=== PATIENT | female | born 1960 | race African-American/Black ===

== ENCOUNTER 2016-05-24 01:56 | Inpatient (IN) | payer OTHER ==
[~2016-05-24] VITALS: Ht 172.7 cm; Wt 103.9 kg
[~2016-05-24 01:56] MED LIST: ATENOLOL100 M1 PO; MULTI-DAY VITA1 EACH PO; PRINIVIL20 M1 PO; VALIUM5 M2 PO
--- NOTE | 2016-05-24 10:12 | RADIOLOGY REPORT ---
EXAMINATION: XR LUMBAR SPINE CLINICAL INFORMATION: L4-L5 transforaminal lumbar interbody fusion. COMPARISON: None. TECHNIQUE: Single view lumbosacral spine. FINDINGS: The vertebral bodies and posterior elements are normal. The disc spaces are preserved and the vertebral alignment is normal. There is metallic marker which is at the level of what appears to be the L4 posterior spinous process. I do not have complete views of the spine with visualization of ribs which would allow me to count the vertebrae. IMPRESSION: A needle is present overlying what appears to be the posterior spinous process of L4.
--- NOTE | 2016-05-24 12:25 | Operative Report ---
Operative/Inv Procedure Report Surgery Date: 05/24/16 Name of Procedure: L4 5 transforaminal lumbar interbody fusion, L4 5 posterior lateral fusion, bilateral facetectomies for spondylolisthesis reduction, L4 5 posterior nonsegmental fixation using Synthes Expedia pedicle screws, L4 5 interbody placement 4web cage, use of autograft, use of allograft, bone marrow aspirate, O arm navigation Pre-Operative Diagnosis: L4 5 spondylolisthesis Post-Operative Diagnosis: Same Estimated Blood Loss: 250 Surgeon/Reinforced Steel Placing Supervisor: Miguel hoff MD and FIDENCIO BENNETT MD Anesthesia: general endotracheal tube Operative/Procedure Note Note: After successful administration of general endotracheal anesthesia all lines tubes and monitors were placed by anesthesia team the patient was positioned prone on the Alfred table with all pressure points padded. We prepped the patient placed a spinal needle to confirm level using x-ray. After levels confirmed reprepped and draped patient usual standard fashion a #10 was used to incise the skin was dissected down with Bovie cautery to the thoracolumbar fascia was divided with the Bovie electrocautery. The fascia was divided and a subperiosteal dissection was carried out exposing the spinous process lamina of L4 and L5, the transverse processes of L4 and L5 were identified and denuded of soft tissue high-speed drill was used to drill decorticated transverse processes. We preserved 34 and 51 joint spaces. After levels confirmed with x- ray we denuded the 45 joint space. We used the [employer] bone scalpel to make cuts in the pars articularis and the lamina bilaterally, removing the bilateral descending facets of L4, we also removed the lamina of L4 and entirety. We then made cuts with the bone scalpel in the superior facet of L5 on the left-hand side providing wide axis to the far lateral disc. We ensured that both exiting traversing L4 and L5 nerve roots were thoroughly decompressed by removing the ligamentum flavum with Kerrison punch. Recess all her bony and ligamentous decompression with#11 blade sequentially removed the disc with a sequential enrico pituitaries and curettes. We trialed a 12 mm spacer this at the appropriate size, the disc space was prepacked with morselized autograft as well as the intervertebral biomechanical device a 12 x 26 x 0 lordotic 4web cage was placed. Monitoring was stable. We then placed the spinous process reference array on the spinous process of L5 brought the O arm in for a spin. On the [employer] workstation with plantar screw entry points trajectories and lengths, we used the navigated instruments to plantar pilot can router holes at the junction of pars reticularis transverse process and facet complex. We placed the pedicle screw the standard fashion using a 6 5 x 45 on the left a 6 5 x 45 on the right at L4 to 6 5 x 40 on the right at L5. All screws stimulated above threshold, the O arm was brought in and confirmed excellent hardware position. We then placed morselized autograft over the decorticated transverse processes and a piece of master graft bilaterally, the morcellized autograft was soaked with bone marrow aspirate taken from the pedicles. Placed bilateral 40 mm rods were secured in place with the set screws and tightened with a torque limiting device. The wound was copiously irrigated bacitracin irrigation. Of note after facetectomy was then interbody cage the patient had a good reduction of spondylolisthesis. The wound was dusted with vancomycin powder through separate stab incision #7 SHAKA drain was inserted. Meticulous hemostasis was obtained the spinous process clamp was removed and the wound was closed in layers using 0 Vicryl for muscle 0 device the fascia 2-0 Vicryl for the deep dermis and the skin was closed with janee. Of note 20 mL of lipid Marcaine was infiltrated the muscle enclosing. A dry sterile dressing was applied. At the end the case all needles sponges and attention counts were correct. Patient was taken to the recovery room in stable condition.
--- NOTE | 2016-05-24 12:50 | Operative Report ---
Operative/Inv Procedure Report Surgery Date: 05/24/16 Name of Procedure: 1. Bilateral L4 pars osteotomies 2. Total bilateral L4 5 facetectomies for reduction of spondylolisthesis L4 5 3. Left L4 5 far lateral discectomy 4. L4 5 transforaminal lumbar interbody fusion with for rehabilitation titanium cage, autograft 5. Nonsegmental L4 5 posterior lateral arthrodesis with Expedia pedicle screws and rods, autograft, master graft 6. O arm navigation Pre-Operative Diagnosis: L4 5 dynamic spondylolisthesis with stenosis Post-Operative Diagnosis: Same Estimated Blood Loss: 600cc Surgeon/Center Sales And Service Associate: SABRINA VARELA,Miguel Sharma M.D. Anesthesia: general endotracheal tube Monitors: Neurophysiologic monitoring IV Fluids: 2.2 L crystalloid Implants: For with titanium interbody cage, Synthes Expedia pedicle screws and rods Urine Output: 185 mL Drains: Medium SHAKA Specimens: L4 5 disc material Complications: None Condition: Stable Operative Indication: Patient is a 56-year-old woman who presents with lumbar claudication and low back pain. She's had a prolonged course of conservative care with ongoing symptoms. Her imaging studies identify a degenerative L4 5 dynamic spondylolisthesis associated with significant central and foraminal stenosis. In light of her failure to respond to nonoperative treatment, she now presents for surgical intervention in the way of a decompression and instrumented fusion. The risks, benefits, and alternatives of the proposed procedure as well as nonsurgical alternatives were explained to the patient in detail. She understood and elected to proceed. Written operative consent was obtained. Operative/Procedure Note Note: Patient was taken to the operating room. After appropriate patient identification and after surgical timeout, neurophysiologic monitoring leads were placed and baseline recordings were obtained. Patient then underwent the smooth induction of general endotracheal anesthesia without incident. Following intubation, monitoring was stable. A Vidal catheter was sterilely inserted. 3 g of IV kjefzol were given in preoperative prophylaxis. DVT prophylaxis was utilized throughout the case. With all tubes and lines secured, the patient was carefully turned to prone position on the Alfred frame taking care to ensure that all pressure points were well-padded. The lumbar region low back was widely prepped and draped usual sterile fashion using povidone iodine solution. A vertical midline skin incision was marked and infiltrated with local anesthetic. As well as a spinal needle was placed superficially and a localizing lateral x-rays obtained to confirm this to be the level of L4 5. With the correct level verified, we then proceeded to make a skin incision with a 10 blade knife. Dissection was carried down through subcutaneous tissue with the Bovie to the lumbodorsal fascia. Fascia was incised in midline and a subperiosteal dissection lumbar paravertebral muscles was performed bilaterally the Bovie exposing underlying spinous processes, lamina, and facet joints bilaterally. The facet joints L4 5 were noted to be markedly hypertrophic. The transverse processes of L4 and L5 were exposed bilaterally decorticated with a high-speed drill. A Mason 4 elevator was placed under the inferomedial aspect of the presumed L4 lamina and intraoperative x-rays obtained to confirm this to be the correct level. Facet joint capsules of L4 5 were stripped bilaterally the Bovie. Spinous process of L4 and L5 were subtotally resected with a Leksell rongeur to preserve the L3 4 and L5-S1 interspinous ligaments and the bone saved on the back table. Using the bone scalpel and Kerrison rongeurs, bilateral pars osteotomies and L4 were completed followed by a total facetectomies of L4 5 on both sides skeletonizing the pedicles of L4 to L5 bilaterally. All bone was saved and passed off to the back table. Hypertrophic underlying ligamentum flavum was stripped with the Kerrisons exposing underlying thecal sac. This was nicely decompressed and the exiting L4 and traversing L5 roots were widely decompressed bilaterally. We then focused our attention to the left side of the L4 5 disc. The dural sac was gently mobilized towards the midline exposing the far lateral disc annulus. This was coagulated with a bipolar and incised in a rectangular fashion with an 11 blade knife. A discectomy was then performed with the disc space scrapers and rasps until all the cartilaginous endplate was removed. The disc space was gently distracted to 12 mm with the dilator. A 12 mm Synthes 4 Stout titanium cage was selected. This was filled with morcellated autograft. Autograft was packed into the anterior L4 5 disc space. The cage was then gently tamped into the disc space under direct observation and countersunk by 23 mm while protecting the neural elements. Once the cage was in position, we then proceeded with the posterior lateral arthrodesis. The O arm reference arc was attached to the L5 spinous process and the O arm was brought into play. AP and lateral reference x-rays were obtained followed by the spin of the O arm. Reconstructions were then obtained and confirmed. Under O arm navigation, pedicle screws were then placed bilaterally at L4 and L5. Entry points were selected at the junction of the pars interarticularis, transverse process, and inferolateral lateral aspect of the rostral facet. Network Firewall Engineer holes were made with the drill. The pedicles were traversed with a gearshift. The holes were sounded, tapped, resounded, and screws placed under a navigation. Prior to placement of the screws, morcellated autograft was packed from the L4 to L5 transverse process along with a 6 mL of Master graft on top. 6.5 x 45 mm Synthes ex medium pedicle screws were placed at L4 and L5 on the left, 6.5 x 45 screw right L4 and a 6.5 x 40 screw at the right L5 without complication. All screws were stimulated with thresholds greater than 30 mA. The cage was further impacted approximately a 2 mm based on the initial of reconstructions The O arm was brought back into play and a second spin was obtained. Reconstructions were obtained and confirmed and all of the screw positions were confirmed and noted to be excellent and the interbody cage position was excellent. 40 mm titanium rods were top loaded into the screws and locking caps placed. The screws were finally tightened with an antitorque device. The wound was copiously irrigated with bacitracin sterile saline irrigation. Meticulous hemostasis is achieved prior to closure using combination of bipolar and thrombin-soaked Gelfoam which was used to cover the interlaminar defect bilaterally. A medium SHAKA drain was placed into the wound and secured to the skin with a 2-0 nylon suture. 1 g of IV vancomycin powder was used to coat all of the cut muscle and soft tissue surfaces prior to closure. Neurophysiologic monitoring was stable we began closure. Deep muscle was reapproximated with interrupted 0 Vicryl suture. The lumbar dorsal fascia was reapproximated with interrupted 0 Vicryl suture. 20 mL of long-acting local anesthetic was infiltrated into the muscle bilaterally and then the superficial wound was closed in layers with interrupted 2-0 Vicryl suture. The skin was closed with janee. Wounds clean and dried. Bacitracin and a sterile occlusive dressing was placed. Patient was returned to the supine position, awakened extubated taken to PACU in stable condition. She was noted to be moving all 4 extremities at the completion of the case. All sponge, needle, and instrument counts were correct at the completion of procedure 3. Neurophysiologic monitoring was stable throughout the case.
--- NOTE | 2016-05-24 14:14 | Admission Core Measures ---
Admission Lab Results I reviewed the following labs: Laboratory Tests 05/24 0650 Urines Urine Test NEGATIVE Admission Meds I reviewed the following Meds: Current Medications Sig/Naldo Start time Last Medication Dose Stop Time Status Admin Acetaminophen 650 MG Q4P PRN 05/24 1415 AC (Tylenol) Atenolol 100 MG DAILY 05/25 1000 AC (Tenormin) Cefazolin Sodium 2 GM Q8H 05/24 1600 AC (Kefzol) N/A 1 UNIT (No Carrier) Cefazolin Sodium 2,000 MG ONCE 05/24 0000 NR (Kefzol-Ancef Inj) 05/24 2359 Docusate Sodium 100 MG TID 05/24 1600 AC (Colace) Heparin Sodium 5,000 UNIT Q8 05/25 0600 AC (Porcine) Hydromorphone HCl 50 MG Q24H PRN 05/24 1330 AC (Dilaudid) Sodium Chloride 45 ML (Normal Saline 50ML Bag) Ketorolac 30 MG Q6P PRN 05/24 1415 AC Tromethamine 05/29 1414 (Toradol) Lisinopril 20 MG DAILY 05/25 1000 AC (Prinivil) Ondansetron HCl 4 MG Q6P PRN 05/24 1415 AC (Zofran) Senna 374 MG AT BEDTIME NEED.. 05/24 1415 AC (Senokot) Sodium Chloride 1,000 ML Q12H 05/24 1400 AC (Normal Saline) Trimethobenzamide HCl 200 MG Q6P PRN 05/24 1415 AC (Tigan) Zolpidem Tartrate 2.5 MG AT BEDTIME 05/24 2200 AC (Ambien) Acute Coronary Syndrome Inclusion Criteria ACS Diagnosis No Inpatient Core Measures LDL Reminder: If No, please order W/I first 24hr of stay Congestive Heart Failure Inclusion Criteria CHF Diagnosis No Cerebrovascular accident Inclusion Criteria CVA/TIA Diagnosis No Inpatient Core Measures Bedside Swallow Eval Reminder: If BSE failed, place ST order Antithrombotic Reminder: Order Antithrombotic Medication by end of day 2 Antithrombotic Reminder: Document Reason Antithrombotic Not ordered by end of day 2 AFIB/Flutter Reminder: If Present, add to problem list AFIB/Flutter Reminder: Order Anticoag Medication for pts with AFIB/Flutter Atherosclerosis Reminder: If Present, add to problem list LDL Reminder: If No, please order W/I first 24hr of stay PT Order Reminder: If No, please order Venous thromboembolism Inpatient Core Measures VTE Risk Factors: Age > 40, Obesity, Surgery VTE Prophylaxis Ordered Inpt Mechanical (ALPS/TEDS) [facility] prophylaxis d/t No contraindications No VTE Pharm Prophylaxis d/t Surgical contraindication Inclusion Criteria - Per Current guidelines, there needs to be overlap - treatment for the first 5 days of Warfarin therapy. - Parenteral Anticoagulation (IV or SC) needs to be - given along with Warfarin therapy. VTE Diagnosis No VTE Type NONE VTE Confirmed by (Test) NONE Problem List As ranked by this Provider includes Assessment & Plan 1. Spinal stenosis at L4-L5 level HOME MEDS Home Med List Atenolol 100 MG TABLET 1 TAB PO DAILY BP (Reported) Diazepam (Valium) 5 MG TABLET 1 TAB PO PRN SPASMS (Reported) Lisinopril (Prinivil) 20 MG TABLET 1 TAB PO DAILY BP (Reported) Multivitamin (Multi-Day Vitamins) 1 EACH TABLET 1 TAB PO DAILY SUPPLEMENT ( Reported)
--- NOTE | 2016-05-24 14:20 | PN- Neurosurgical ---
Subjective Subjective: The patient was seen this afternoon postoperatively. She complains of mild incisional soreness but is otherwise relatively comfortable with current pain regiment. She denied any numbness, weakness, or tingling in her extremities and had no other complaints at the current time. Additionally, she denies any chest pain, palpitations, or difficulty breathing. Objective Vital Signs and I&Os Vital signs: Blood pressure 150/85, pulse 65, temperature 97.8, O2 saturations 96% on room air I's and O's: 2200 ML's in of lactated Ringer's/200 ML's out of urine via Vidal catheter/EBL 400/SHAKA 40 Physical Exam: Gen.: Alert and in no obvious distress Skin: Warm and dry Cardiac: S1-S2 regular Pulmonary: Bilateral breath sounds are equal but decreased at bases Back: Surgical dressing was clean, dry, and intact. There is a SHAKA 1 holding suction with serosanguineous drainage in the bulb Extremities: Patient was able to move all 4 extremities with equal strength. Gross motor and sensory were intact. Bilateral lower extremities are warm without calf tenderness or significant edema. Assessment/Plan Assessment/Plan Assessment: 56-year-old female status post L4 -5 TLIF. Postoperative the patient remains neurologically intact and her pain is under relatively adequate control. Plan: Patient may be out of bed as tolerated with surgical brace. Physical therapy consultation Continue current pain regiment with Dilaudid PULVERIZER TENDER and when necessary Toradol GI and DVT prophylaxis with Alps only. If patient is stable tomorrow we will start subcutaneous heparin Follow-up morning laboratory studies Strict I's and O's Advance diet as tolerated Keep SHAKA is self suction and Vidal catheter to gravity Resume patient's home medications IV antibiotics will SHAKA is in Core Measures/Miscellaneous Vidal Catheter Date In: 05/24/16 Still Needed? Yes Venous Thromboembolism VTE Risk Factors: Age > 40, Obesity, Surgery VTE Contraindications: Active Bleeding, Severe Spine Trauma x4 wk VTE Prophylaxis Ordered Inpt: Mechanical (ALPS/TEDS) No Pharm VTE Prophylaxis D/T: Surgical Contraindication VTE Diagnosis: No VTE Type: NONE VTE Confirmed by (Test): NONE Beta Brigitte Is Beta Brigitte a Home Med? Yes If Yes, Was This Ordered Today? Yes Antibiotics Is Patient on Antibiotics? Yes If Yes: prophylaxis
--- NOTE | 2016-05-24 16:03 | RADIOLOGY REPORT ---
EXAMINATION: XR LUMBOSACRAL SPINE CLINICAL INFORMATION: Lower lumbar spine fusion. COMPARISON: Lumbar spine films from earlier today. TECHNIQUE: Forearm equipment was dedicated to the operating room for the performance of a lower lumbar spine fusion. Frontal and lateral views of the lower lumbar spine were performed and 2 O-arm spins were recorded and are archived in PACS. FLUOROSCOPY TIME: 6.95 minutes. FINDINGS: Lower lumbar spine is anatomically aligned. Serial images demonstrate placement of transpedicular screws at the L4 and L5 levels with intervertebral disc spacer placement. IMPRESSION: Lower lumbar spine fusion.
[2016-05-24 16:06] VITALS: BP 140/90
[2016-05-24 17:30] VITALS: BP 170/90
[2016-05-24 19:30] VITALS: BP 180/84
[2016-05-24 20:17] VITALS: BP 186/90
[2016-05-24 20:55] VITALS: BP 180/84
[2016-05-24 21:30] VITALS: BP 168/84
[2016-05-25] VITALS (10 sets, daily range): BP systolic 130–158; BP diastolic 68–90
--- NOTE | 2016-05-25 07:42 | PN- Neurosurgical ---
Subjective Subjective: NAEO. No new c/o. Pain controlled with dilaudid RESERVATIONS CLERK. Denies numbness or tingling in BLE. Ambulating with rolling walker. Tolerating diet without n/v. Denies CP/SOB. Objective Vital Signs and I&Os Vital Signs Date Time Temp Pulse Resp B/P Pulse O2 O2 Flow FiO2 Ox Delivery Rate 05/25 0636 97.8 73 20 138/80 95 Room Air 05/25 0600 97.8 73 20 138/80 05/25 0406 98.0 81 20 130/68 93 Room Air 05/25 0400 98.0 81 20 130/80 05/25 0200 97.9 73 20 158/90 05/25 0158 97.9 73 20 158/90 94 Room Air 05/25 0010 98.1 87 20 154/88 91 Room Air 05/25 0000 98.1 87 20 154/88 05/24 2130 97.9 78 20 168/84 93 Room Air 05/24 2055 97.6 83 18 180/84 05/24 2017 83 05/24 2017 186/90 05/24 1930 96.0 83 18 180/84 95 Room Air 05/24 1730 79 20 170/90 96 Room Air 05/24 1636 Room Air 05/24 1606 96.5 72 24 140/90 91 Room Air Intake & Output 05/25 0800 05/25 0000 05/24 1600 05/24 0800 05/24 0000 05/23 1600 Intake Total 640 890 Output Total 650 830 Balance -10 60 Intake, IV 160 240 Intake, Oral 480 650 Number 0 Bowel Movements Output, 80 Drainage Output, Urine 650 750 Patient 229 lb Weight Physical Exam: General: NAD, comfortable, A&Ox3 Chest: CTAB, no wheezes, no rales. Heart S1S2 normal. Abdomen: soft, nontender, nondistended. Back: Lower dressing with some strikethrough. KRYSTYNA drain in place with serosanguineous drainage. No swelling noted. Ext: No calve swelling/TTP, neurovascularly intact bilateral lower extremities Current Medications: Current Medications Sig/Naldo Start time Last Medication Dose Route Stop Time Status Admin Acetaminophen 650 MG Q4P PRN 05/24 1415 AC PO Atenolol 100 MG DAILY 05/25 1000 AC PO Bisacodyl 10 MG DAILY NEEDED PRN 05/24 1615 AC OH Bisacodyl 10 MG DAILY NEEDED 05/24 1500 DC OH Cefazolin Sodium 2 GM Q8H 05/24 1600 AC 05/24 N/A 1 UNIT IV 2337 Cefazolin Sodium 2,000 MG ONCE 05/24 0000 DC IV 05/24 2359 Diazepam 5 MG Q8P PRN 05/24 1500 AC 05/24 PO 2031 Docusate Sodium 100 MG TID 05/24 1600 AC 05/25 PO 0556 Heparin Sodium 5,000 UNIT Q8 05/25 0600 AC 05/25 (Porcine) SC 0556 Heparin Sodium 5,000 UNIT Q8 05/24 1400 DC (Porcine) SC Hydromorphone HCl 1 MG Q4-6 PRN PRN 05/25 0800 AC PO Hydromorphone HCl 2 MG Q4-6 PRN PRN 05/25 0800 AC PO Hydromorphone HCl 1 MG Q4-6 PRN PRN 05/25 0800 AC IV Hydromorphone HCl 2 MG Q4-6 PRN PRN 05/25 0800 AC IV Hydromorphone HCl 1 MG Q4-6 PRN PRN 05/24 1615 DC PO Hydromorphone HCl 2 MG Q4-6 PRN PRN 05/24 1615 DC PO Hydromorphone HCl 1 MG Q4-6 PRN PRN 05/24 1615 DC IV Hydromorphone HCl 2 MG Q4-6 PRN PRN 05/24 1615 DC IV Hydromorphone HCl 50 MG Q24H PRN 05/24 1330 AC Sodium Chloride 45 ML IV Ketorolac 30 MG Q6P PRN 05/24 1415 AC Tromethamine IV 05/29 1414 Lisinopril 20 MG DAILY 05/25 1000 AC PO Ondansetron HCl 4 MG Q6P PRN 05/24 1415 AC IV Oxycodone/ 2 TAB Q4P PRN 05/25 0800 AC Acetaminophen PO Oxycodone/ 2 TAB Q4P PRN 05/24 1615 DC Acetaminophen PO Senna 374 MG AT BEDTIME NEED.. 05/24 1415 AC PO Sodium Chloride 1,000 ML Q12H 05/24 1400 AC 05/25 IV 05/25 1359 0102 Trimethobenzamide HCl 200 MG Q6P PRN 05/24 1415 AC IM Zolpidem Tartrate 2.5 MG AT BEDTIME 05/24 2200 AC 05/24 PO 2232 Results Last 48 Hours of Labs: Laboratory Tests 05/24 0650 Urines Urine Test NEGATIVE Assessment/Plan Assessment/Plan 56yo F POD#1 s/p L4-5 TLIF with krystyna drain placement. AVSS. Patient progressing well. - Continue dilaudid RESERVATIONS CLERK this a.m. Will likely dc and convert to PO pain meds later today. - PRN zofran - Bowel regimen - Continue diet - Contiue KRYSTYNA drain to bulb suction - Continue abx while KRYSTYNA in place - Leave dressing in place - I/O's - DC IVF - DC Vidal - OOB and ambulate - Will d/w attending Core Measures/Miscellaneous Vidal Catheter Date In: 05/24/16 Venous Thromboembolism VTE Risk Factors: Age > 40, Obesity, Surgery VTE Contraindications: Active Bleeding, Severe Spine Trauma x4 wk VTE Prophylaxis Ordered Inpt: Mechanical (ALPS/TEDS) No Pharm VTE Prophylaxis D/T: Surgical Contraindication VTE Diagnosis: No VTE Type: NONE VTE Confirmed by (Test): NONE Beta Brigitte Is Beta Brigitte a Home Med? Yes If Yes, Was This Ordered Today? Yes Antibiotics Is Patient on Antibiotics? Yes If Yes: prophylaxis
--- NOTE | 2016-05-25 07:49 | Patient Discharge Instructions ---
Discharge Instructions General Discharge Information You were seen/treated for: L4 5 dynamic spondylolisthesis with stenosis You had these procedures: 05/24/16 1. Bilateral L4 pars osteotomies 2. Total bilateral L4 5 facetectomies for reduction of spondylolisthesis L4 5 3. Left L4 5 far lateral discectomy 4. L4 5 transforaminal lumbar interbody fusion with for rehabilitation titanium cage, autograft 5. Nonsegmental L4 5 posterior lateral arthrodesis with [employer] pedicle screws and rods, autograft, master graft 6. O arm navigation Watch for these problems: Redness, swelling, fever, purulent drainage, signs of infection. Uncontrolled pain. Excessive bleeding. Return of symptoms. Numbness and/or tingling in lower extremities. Leg pain. Chest pain. Shortness of breath. Do not soak the wound: Yes No bath, but you may shower: Yes Other wound care: Daily dressing changes or as needed Diet Continue normal diet: Yes Activity Full Activity/No Limits: No Pounds, do NOT lift more than: 5 Activity Limited to: Weight bear as tolerated Other activity limits: No strenuous activity and/or exercise. Please see Dr. Gant's instructions. Acute Coronary Syndrome Inclusion Criteria At DC or during hospital stay patient has or had the following: ACS DIAGNOSIS No Discharge Core Measures Meds if any: Prescribed or Continued at Discharge Meds if any: NOT Prescribed or Continued at Discharge Congestive Heart Failure Inclusion Criteria At DC or during hospital stay patient has or had the following: CHF DIAGNOSIS No Discharge Core Measures Meds if any: Prescribed or Continued at Discharge Meds if any: NOT Prescribed or Continued at Discharge Cerebrovascular accident Inclusion Criteria At DC or during hospital stay patient has or had the following: CVA/TIA Diagnosis No Discharge Core Measures Meds if any: Prescribed or Continued at Discharge Meds if any: NOT Prescribed or Continued at Discharge Venous thromboembolism Inclusion Criteria VTE Diagnosis No VTE Type NONE VTE Confirmed by (Test) NONE Discharge Core Measures - Per Current guidelines, there needs to be overlap - treatment for the first 5 days of Warfarin therapy. - If discharged on Warfarin prior to 5 days of - overlap therapy, the patient will need to be - assessed for post discharge needs including - *Post discharge parental anticoagulation - *Warfarin and/or parental anticoagulation education - *Follow up date to check INR post discharge At least 5 days overlap therapy as Inpatient No Meds if any: Prescribed or Continued at Discharge Note: Overlap Therapy is Warfarin and Anticoagulant Meds if any: NOT Prescribed or Continued at Discharge
--- NOTE | 2016-05-25 07:53 | Discharge Summary ---
Visit Information Visit Dates Admission Date: 05/24/16 Discharge Date: 05/27/16 Hospital Course Course Attending Physician: SABRINA VARELA,FIDENCIO Pelayo Primary Care Physician: KARI RIVERS MD Hospital Course: Patient admitted to floor after scheduled procedure. Pain control was optimized. Diet was advanced to regular diet. She ambulated in hallways. Hospital course uneventful. Upon discharge patient is afebrile, pain well controlled, tolerating diet, ambulating independently, appropriate for discharge. Complications: None Allergies: Coded Allergies: codeine (Intermediate, ITCH 05/18/16) Significant Procedures: 05/24/2016 1. Bilateral L4 pars osteotomies 2. Total bilateral L4 5 facetectomies for reduction of spondylolisthesis L4 5 3. Left L4 5 far lateral discectomy 4. L4 5 transforaminal lumbar interbody fusion with for rehabilitation titanium cage, autograft 5. Nonsegmental L4 5 posterior lateral arthrodesis with [employer] pedicle screws and rods, autograft, master graft 6. O arm navigation Disposition Summary Disposition Principal Diagnosis: L4 5 dynamic spondylolisthesis with stenosis Additional Diagnosis: None Discharge Disposition: home or self care Discharge Instructions General Discharge Information Code Status: Full Code Patient's Diet: Resume normal diet Patient's Activity: No lifting >5lbs. No strenuous activity or exercise. Follow-Up Instructions/Appts: Call office to schedule/confirm appointment. Medications at Discharge Discharge Medications: Stop taking the following medications: Diazepam (Valium) 5 MG TABLET ORAL as needed for SPASMS Continue taking these medications: Lisinopril (Prinivil) 20 MG TABLET 1 Tablet ORAL DAILY Comments: DOCUMENTED PER CMR DURING PRE-SX INTERVIEW Atenolol (Atenolol) 100 MG TABLET 1 Tablet ORAL DAILY Comments: DOCUMENTED PER CMR DURING PRE-SX INTERVIEW Multivitamin (Multi-Day Vitamins) 1 EACH TABLET 1 Tablet ORAL DAILY Comments: DOCUMENTED PER CMR DURING PRE-SX INTERVIEW Start taking the following new medications: Hydromorphone HCl (Dilaudid) 2 MG TABLET 1-2 Tablet ORAL Q4-6H as needed for PAIN Qty = 36 No Refills Diazepam (Valium) 5 MG TABLET 1 Tablet ORAL EVERY 8 HOURS NEEDED as needed for SPASM Qty = 9 No Refills Copies To: KARI RIVERS MD
[2016-05-25 09:21] LABS: ABSOLUTE BASOPHIL COUNT 0 /CUMM (0.0-0.2); ABSOLUTE EOSINOPHIL COUNT 0 /CUMM (0.0-0.7); ABSOLUTE GRANULOCYTE CT 10.3 /CUMM (1.4-6.5); ABSOLUTE LYMPH COUNT 1.2 /CUMM (1.2-3.4); ABSOLUTE MONOCYTE COUNT 0.6 /CUMM (0.10-0.60); BASOPHIL % 0 % (0.0-2.0); EOSINOPHIL % 0.1 % (0-5); GRANULOCYTE % 85.4 % (42.2-75.2); HEMATOCRIT 40.5 % (37-47); MEAN CORPUSCULAR HGB 28.1 PG (27.0-31.0); MEAN CORPUSCULAR HGB CONC 33.3 G/DL (33.0-37.0); MEAN CORPUSCULAR VOLUME 84.6 FL (81.0-99.0); MEAN PLATELET VOLUME 10.4 FL (7.4-10.4); PLATELET COUNT 175 /CUMM (130-400); RED BLOOD CELL CT 4.78 /CUMM (4.20-5.40)
[2016-05-25 10:07] LABS: WHITE BLOOD CELL COUNT 12.1 /CUMM (4.8-10.8)
[2016-05-26 06:39] VITALS: BP 146/78
--- NOTE | 2016-05-26 07:19 | PN- Neurosurgical ---
Subjective Subjective: The patient was seen this morning postoperatively day #2. She reports her pain is under adequate control and has no other complaints at the current time. She denies any weakness, numbness, or tingling in her extremities. Objective Vital Signs and I&Os Vital Signs Date Time Temp Pulse Resp B/P Pulse O2 O2 Flow FiO2 Ox Delivery Rate 05/26 0639 99.9 89 19 146/78 93 Room Air 05/25 2221 99.1 92 18 158/82 96 Room Air 05/25 1434 98.1 83 20 150/80 95 Room Air 05/25 0859 73 138/80 Intake & Output 05/26 0800 05/26 0000 05/25 1600 05/25 0800 05/25 0000 05/24 1600 Intake Total 400 1600 640 890 Output Total 575 2570 300 650 830 Balance -175 -970 -300 -10 60 Intake, IV 100 160 240 Intake, Oral 400 1500 480 650 Number 0 Bowel Movements Output, 125 120 80 Drainage Output, Urine 450 2450 300 650 750 Patient 229 lb Weight Physical Exam: Gen.: Alert in obvious distress Skin: Warm and dry Extremities: Patient moves all 4 extremities with equal strength. Gross motor and sensory are intact. Bilateral lower extremities are warm without calf tenderness or significant edema. Back: Surgical dressing is slightly blood tinged at the inferior aspect. There is a SHAKA 1 holding suction with serosanguineous drainage in the bulb. Assessment/Plan Assessment/Plan Assessment: 56-year-old female status post L4-5 TLIF postoperative day #2. The patient is progressing as expected and her pain is under adequate control. Her SHAKA output remains high and she has a nonfocal exam. Plan: Out of bed with physical therapy and with brace Keep SHAKA is self suction and continue antibiotics until it is removed. Continue current pain regiment GI and DVT prophylaxis Core Measures/Miscellaneous Vidal Catheter Date In: 05/24/16 Venous Thromboembolism VTE Risk Factors: Age > 40, Obesity, Surgery VTE Contraindications: Active Bleeding, Severe Spine Trauma x4 wk VTE Prophylaxis Ordered Inpt: Mechanical (ALPS/TEDS) No Pharm VTE Prophylaxis D/T: Surgical Contraindication VTE Diagnosis: No VTE Type: NONE VTE Confirmed by (Test): NONE Beta Brigitte Is Beta Brigitte a Home Med? Yes If Yes, Was This Ordered Today? Yes Antibiotics Is Patient on Antibiotics? Yes If Yes: prophylaxis
--- NOTE | 2016-05-26 07:30 | PN- Neurosurgical ---
Subjective Subjective: Pt with incisional LBP, otherwise no complaints Objective Vital Signs and I&Os Vital Signs Date Time Temp Pulse Resp B/P Pulse O2 O2 Flow FiO2 Ox Delivery Rate 05/26 0639 99.9 89 19 146/78 93 Room Air 05/25 2221 99.1 92 18 158/82 96 Room Air 05/25 1434 98.1 83 20 150/80 95 Room Air 05/25 0859 73 138/80 Intake & Output 05/26 0800 05/26 0000 05/25 1600 05/25 0805/25 0000 05/24 1600 Intake Total 400 1600 640 890 Output Total 575 2570 300 650 830 Balance -175 -970 -300 -10 60 Intake, IV 100 160 240 Intake, Oral 400 1500 480 650 Number 0 Bowel Movements Output, 125 120 80 Drainage Output, Urine 450 2450 300 650 750 Patient 103.873 kg Weight Physical Exam: Pt is awake and alert temp 99.9 this am, sat 93%, BP well controlled incision is c,d,i SHAKA with 75cc serosanguinous drainage this am neuro exam is normal bilat LE, no edema was ambulatory yest with brace isaias po, voiding on own Current Medications: Current Medications Sig/Naldo Start time Last Medication Dose Route Stop Time Status Admin Acetaminophen 650 MG Q4P PRN 05/24 1415 AC PO Atenolol 100 MG DAILY 05/25 1000 AC 05/25 PO 0859 Bisacodyl 10 MG DAILY NEEDED PRN 05/24 1615 AC TX Cefazolin Sodium 2 GM Q8H 05/24 1600 AC 05/26 N/A 1 UNIT IV 0033 Diazepam 5 MG Q8P PRN 05/24 1500 AC 05/25 PO 2040 Docusate Sodium 100 MG TID 05/24 1600 AC 05/25 PO 1940 Heparin Sodium 5,000 UNIT Q8 05/25 0600 AC 05/26 (Porcine) SC 0511 Hydromorphone HCl 1 MG Q4-6 PRN PRN 05/25 08 AC PO Hydromorphone HCl 2 MG Q4-6 PRN PRN 05/25 0800 AC 05/26 PO 0514 Hydromorphone HCl 1 MG Q4-6 PRN PRN 05/25 08 AC IV Hydromorphone HCl 2 MG Q4-6 PRN PRN 05/25 0800 DC IV Hydromorphone HCl 50 MG Q24H PRN 05/24 1330 DC Sodium Chloride 45 ML IV Ketorolac 30 MG Q6P PRN 05/24 1415 AC Tromethamine IV 05/29 1414 Lisinopril 20 MG DAILY 05/25 1000 AC 05/25 PO 0859 Ondansetron HCl 4 MG Q6P PRN 05/24 1415 AC IV Oxycodone/ 2 TAB Q4P PRN 05/25 0800 AC Acetaminophen PO Senna 374 MG AT BEDTIME NEED.. 05/24 1415 AC 05/25 PO 1941 Sodium Chloride 1,000 ML Q12H 05/24 1400 DC 05/25 IV 05/25 1359 0102 Trimethobenzamide HCl 200 MG Q6P PRN 05/24 1415 AC IM Zolpidem Tartrate 2.5 MG AT BEDTIME 05/24 2200 AC 05/25 PO 1940 Results Last 48 Hours of Labs: Laboratory Tests 05/25 0745 Chemistry Sodium (137 - 145 mmol/L) 138 Potassium (3.5 - 5.1 mmol/L) 3.8 Chloride (98 - 107 mmol/L) 103 Carbon Dioxide (22 - 30 mmol/L) 26 Anion Gap (5 - 16) 9 BUN (7 - 17 mg/dL) 11 Creatinine (0.5 - 1.0 mg/dL) 0.9 Estimated GFR (>60 ml/min) > 60 BUN/Creatinine Ratio (7 - 25 %) 12.2 Hematology CBC w Diff NO MAN DIFF REQ WBC (4.8 - 10.8 /CUMM) 12.1 H RBC (4.20 - 5.40 /CUMM) 4.78 Hgb (12.0 - 16.0 G/DL) 13.5 Hct (37 - 47 %) 40.5 MCV (81.0 - 99.0 FL) 84.6 MCH (27.0 - 31.0 PG) 28.1 RDW (11.5 - 14.5 %) 15.0 H Plt Count (130 - 400 /CUMM) 175 MPV (7.4 - 10.4 FL) 10.4 Gran % (42.2 - 75.2 %) 85.4 H Lymphocytes % (20.5 - 51.1 %) 9.5 L Monocytes % (1.7 - 9.3 %) 5.0 Eosinophils % (0 - 5 %) 0.1 Basophils % (0.0 - 2.0 %) 0 L Absolute Granulocytes (1.4 - 6.5 /CUMM) 10.3 H Absolute Lymphocytes (1.2 - 3.4 /CUMM) 1.2 Absolute Monocytes (0.10 - 0.60 /CUMM) 0.6 Absolute Eosinophils (0.0 - 0.7 /CUMM) 0 Absolute Basophils (0.0 - 0.2 /CUMM) 0 PUBS MCHC (33.0 - 37.0 G/DL) 33.3 Assessment/Plan Assessment/Plan Pt POD2 s/p L4/5 TLIF and doing well. Low grade temp this am likely secondary to atelectasis in postop period Plan: -OOB ambulating -IS to bedside, use 10x qhr -DVT prophylaxis -PT -dc SHAKA when 50cc or less per shift, cont abx until drain out -plan for probable dc home tomorrow -needs dc planning - [facility], [employer] for dc -try toradol today for pain Core Measures/Miscellaneous Vidal Catheter Date In: 05/24/16 Venous Thromboembolism VTE Risk Factors: Age > 40, Obesity, Surgery VTE Contraindications: Active Bleeding, Severe Spine Trauma x4 wk VTE Prophylaxis Ordered Inpt: Mechanical (ALPS/TEDS) No Pharm VTE Prophylaxis D/T: Surgical Contraindication VTE Diagnosis: No VTE Type: NONE VTE Confirmed by (Test): NONE Beta Brigitte Is Beta Brigitte a Home Med? Yes If Yes, Was This Ordered Today? Yes Antibiotics Is Patient on Antibiotics? Yes If Yes: prophylaxis Attending MD Review Statement Attending Statement Attending MD Statement: examined this patient, discuss w/resident/PA/[employer], discussed w/nursing
[2016-05-26 15:16] VITALS: BP 150/90
[2016-05-26 22:11] VITALS: BP 156/80
[2016-05-27 06:37] VITALS: BP 148/80
[2016-05-27 08:00] VITALS: BP 132/88
--- NOTE | 2016-05-27 08:20 | PN- Neurosurgical ---
Subjective Subjective: NAEO. No new c/o. Pain controlled. Denies numbness or tingling in BLE. Ambulating with brace. Tolerating diet without n/v. Denies CP/SOB. Objective Vital Signs and I&Os Vital Signs Date Time Temp Pulse Resp B/P Pulse O2 O2 Flow FiO2 Ox Delivery Rate 05/27 0800 80 132/88 05/27 0637 97.5 90 20 148/80 97 Room Air 05/26 2211 98.5 90 20 156/80 97 Room Air 05/26 1516 97.7 87 20 150/90 96 05/26 0843 89 146/78 Intake & Output 05/27 1600 05/27 0800 05/27 0000 05/26 1600 05/26 0800 05/26 0000 Intake Total 400 1010 035 499 5831 Output Total 42 50 70 575 2570 Balance 358 960 530 -175 -970 Intake, IV 50 100 Intake, Oral 400 960 879 545 2199 Number 2 Bowel Movements Output, 40 50 70 125 120 Drainage Output, Urine 2 450 2450 Physical Exam: General: NAD, comfortable, A&Ox3 Chest: CTAB, no wheezes, no rales. Heart S1S2 normal. Abdomen: soft, nontender, nondistended. Back: Lower dressing with some strikethrough. KRYSTYNA drain in place with serosanguineous drainage. No swelling noted. Ext: No calve swelling/TTP, neurovascularly intact bilateral lower extremities Current Medications: Current Medications Sig/Naldo Start time Last Medication Dose Route Stop Time Status Admin Acetaminophen 650 MG Q4P PRN 05/24 1415 AC PO Atenolol 100 MG DAILY 05/25 1000 AC 05/27 PO 0800 Bisacodyl 10 MG DAILY NEEDED PRN 05/24 1615 AC NC Cefazolin Sodium 2 GM Q8H 05/24 1600 05/27 N/A 1 UNIT IV 0800 Diazepam 5 MG Q8P PRN 05/24 1500 AC 05/26 PO 1704 Docusate Sodium 100 MG TID 05/24 1600 05/27 PO 0759 Heparin Sodium 5,000 UNIT Q8 05/25 0600 AC 05/27 (Porcine) SC 0647 Hydromorphone HCl 1 MG Q4-6 PRN PRN 05/25 0800 AC PO Hydromorphone HCl 2 MG Q4-6 PRN PRN 05/25 0800 AC 05/27 PO 0759 Hydromorphone HCl 1 MG Q4-6 PRN PRN 05/25 0800 AC IV Ketorolac 30 MG Q8 05/26 1400 AC 05/27 Tromethamine IV 05/28 0600 0648 Lisinopril 20 MG DAILY 05/25 1000 AC 05/27 PO 0800 Ondansetron HCl 4 MG Q6P PRN 05/24 1415 AC IV Oxycodone/ 2 TAB Q4P PRN 05/25 0800 AC Acetaminophen PO Patient Medication 1 ED .STK-MED ONE 05/26 1416 UT Teaching ED 05/26 1417 Senna 374 MG AT BEDTIME NEED.. 05/24 1415 AC 05/26 PO 2157 Trimethobenzamide HCl 200 MG Q6P PRN 05/24 1415 AC IM Zolpidem Tartrate 2.5 MG AT BEDTIME 05/24 2200 AC 05/26 PO 2156 Assessment/Plan Assessment/Plan 56yo F POD#3 s/p L4-5 TLIF with krystyna drain placement. AVSS. Patient progressing well. KRYSTYNA drain continues to put out minimum 50ml per shift - Pain control - PRN zofran - Bowel regimen - Continue diet - Contiue KRYSTYNA drain to bulb suction - Continue abx while KRYSTYNA in place - Leave dressing in place - I/O's - OOB and ambulate - d/c planning - Will d/w attending Core Measures/Miscellaneous Vidal Catheter Date In: 05/24/16 Venous Thromboembolism VTE Risk Factors: Age > 40, Obesity, Surgery VTE Contraindications: Active Bleeding, Severe Spine Trauma x4 wk VTE Prophylaxis Ordered Inpt: Mechanical (ALPS/TEDS) No Pharm VTE Prophylaxis D/T: Surgical Contraindication VTE Diagnosis: No VTE Type: NONE VTE Confirmed by (Test): NONE Beta Brigitte Is Beta Brigitte a Home Med? Yes If Yes, Was This Ordered Today? Yes Antibiotics Is Patient on Antibiotics? Yes If Yes: prophylaxis
[2016-05-27] MEDS ORDERED: VALIUM5 M2 PO (10:07)
[2016-05-27] MEDS ORDERED: DILAUDID2 M1 PO (10:07)
== END 2016-05-27 12:15 | disposition home health service (06) | DRG 460 ==
LOC: ENRESERVTM → ENRESERVDT → SDA 01:56 → ENPENDDIS 01:56 → 2NA 01:56 → SDA 07:00 → 2NA 15:41
PROVIDERS: Physician Assistant; ADMIT Neurological Surgery
PROC: 4A11X4G Monitoring of Peripheral Nervous Electrical Activity, Intraoperative, External Approach (ICD-10-PCS; principal; 2016-05-24)
PROC: 0SB20ZZ Excision of Lumbar Vertebral Disc, Open Approach (ICD-10-PCS; principal; 2016-05-24)
PROC: 0SG00AJ Fusion of Lumbar Vertebral Joint with Interbody Fusion Device, Posterior Approach, Anterior Column, Open Approach (ICD-10-PCS; principal; 2016-05-24)
PROC: 0SG0071 Fusion of Lumbar Vertebral Joint with Autologous Tissue Substitute, Posterior Approach, Posterior Column, Open Approach (ICD-10-PCS; principal; 2016-05-24)
PROC: 0QB00ZZ Excision of Lumbar Vertebra, Open Approach (ICD-10-PCS; principal; 2016-05-24)
DX: M48.06 Spinal stenosis, lumbar region (principal); I10 Essential (primary) hypertension; M43.16 Spondylolisthesis, lumbar region; G47.33 Obstructive sleep apnea (adult) (pediatric); E66.9 Obesity, unspecified; Z68.34 Body mass index [BMI] 34.0-34.9, adult
CPT/HCPCS: 2NAP; 36415; 72020; 72100; 81025; 82436; 87086; 88304; 97116-GO; 97161-GP; 97530-GO; C9290; J0131; J0690; J1170; J1644; J1885; J2405; J3250; J3370